=== PATIENT | male | born 2005 | race Two or more races ===

== ENCOUNTER 2025-10-02 09:08 | Emergency (ER) | payer OTHER ==
[~2025-10-02] VITALS: Ht 170.2 cm; Wt 81.8 kg
[2025-10-02] MEDS ORDERED: CEPH-558 PO (10:36)
[2025-10-02 11:06] VITALS: BP 118/72; PULSE 76; RESP 18; TEMP 98; O2SAT 99
== END 2025-10-02 11:10 | disposition home or self-care (01) ==
LOC: EMS 09:08
DX: L73.9 Follicular disorder, unspecified (principal)
CPT/HCPCS: 99283; Z7502